=== PATIENT | female | born 1950 | race Caucasian/White ===

== ENCOUNTER 2016-11-04 08:59 | Day surgery (SDC) | payer MEDICARE, BC ==
[~2016-11-04 08:59] MED LIST: Dextrose 5%-Lactated Ringers 1,000 ML IV SCH
[2016-11-04] MEDS ORDERED: Dextrose 5%-Lactated Ringers 1,000 ML IV SCH (09:45)
[2016-11-04] MEDS ORDERED: fentaNYL 100 MCG/2 ML SDV ONE (11:15)
[2016-11-04] MEDS ORDERED: Midazolam 1 MG/ML 2 ML SDV ONE (11:15)
[2016-11-04] MEDS ORDERED: Propofol 200 MG/20 ML SDV ONE (11:15)
[2016-11-04 14:27] VITALS: BP 124/69
--- NOTE | 2016-11-08 12:45 | OR ---
DATE OF PROCEDURE: 11/04/2016 PREOPERATIVE DIAGNOSIS: History of colon polyps. POSTOPERATIVE DIAGNOSIS: Recurrent colon polyps x4. OPERATIVE PROCEDURE: Flexible colonoscopy with, 1. Polypectomy by snare technique x4. 2. Injection of an Precious ink submucosally at 40 cm from the dentate line. ANESTHESIA: IV sedation. INDICATION FOR PROCEDURE: The patient presents for a followup colonoscopy with biopsies and/or polypectomy as indicated. Potential risks of the procedure including bleeding and perforation were discussed, and the patient wishes to proceed. DETAILS OF PROCEDURE: The patient was taken to the operating room and placed in a left lateral decubitus position. IV sedation was administered, after which the initial digital rectal exam was performed and was unremarkable. Colonoscope was passed into the rectum with retroflexion revealing uncomplicated hemorrhoids. The scope was eventually passed to the level of cecum. The prep was quite good with there being only a small amount of liquid stool present. There were no diverticula. There were no areas of colitis and no obvious more advanced tumors, there were however 4 polyps ranging up to the size of around 4 mm. One of these was in the mid transverse colon and 3 were in the area of clustering of the polyps between 40 and 45 cm. In each case, these were encircled with a snare and excised and sent separately as specimens with a small amount of bleeding from one of the polypectomy sites that was gently cauterized to locate the area of the clustering of polyps at the 40 to 45 cm. A 5 mL of Precious ink was injected submucosally. At that point, no further problems noted and the scope was gradually withdrawn. The above findings reconfirmed, and the procedure concluded. The patient was taken to the recovery room in satisfactory condition. Plan will be to call the patient with regard to the biopsy findings and we will instruct her at that time with regard to appropriate timing of followup. Carlos Ruvalcaba MD /[id number]
== END 2016-11-04 14:35 | disposition home or self-care (01) ==
LOC: JP.SDS 08:59
PROVIDERS: ATTEND Surgery
DX: Z12.11 Encounter for screening for malignant neoplasm of colon (principal); Z86.010 Personal history of colon polyps; D12.3 Benign neoplasm of transverse colon; D12.6 Benign neoplasm of colon, unspecified; Z88.2 Allergy status to sulfonamides; Z88.1 Allergy status to other antibiotic agents; Z88.8 Allergy status to other drugs, medicaments and biological substances; Z91.018 Allergy to other foods; Z91.041 Radiographic dye allergy status; E78.5 Hyperlipidemia, unspecified; K21.9 Gastro-esophageal reflux disease without esophagitis; Z95.5 Presence of coronary angioplasty implant and graft; E11.22 Type 2 diabetes mellitus with diabetic chronic kidney disease; I12.9 Hypertensive chronic kidney disease with stage 1 through stage 4 chronic kidney disease, or unspecified chronic kidney disease; N18.3 Chronic kidney disease, stage 3 (moderate)
CPT/HCPCS: 45385; J2250; J2704; J3010; J7042; 88305

== ENCOUNTER 2016-11-07 14:15 | Inpatient (IN) | payer OTHER, MEDICARE, BC ==
--- NOTE | 2016-11-07 15:42 | EDM.PDOC ---
[id number]: PAIN IN LEFT SIDE HAD CHOLOSCOPY 11/04 Time Seen by Provider: 11/07/16 15:10 Source of Information: Reports: Patient History Limitations: Reports: No Limitations - History of Present Illness INITIAL COMMENTS - FREE TEXT/NARRATIVE: 66-year-old female who had a colonoscopy 3 days ago has developed left lower quadrant pain for the past 48 hours. It was painful enough that she had difficulty sleeping overnight. She is developing a small amount of rebound tenderness. No fevers or chills, no nausea or vomiting, no abdominal distention. Onset: Gradual (Over the past 24-48 hours) Location: Reports: Abdomen Severity: Mild Associated Symptoms: Denies: Fever/Chills, Nausea/Vomiting, Shortness of Breath left lower abdomen Pain Score (Numeric/FACES): 8 - Related Data Allergies Allergy/AdvReac Type Severity Reaction Status Date / Time atorvastatin [From Lipitor] Allergy Cannot Verified 11/07/16 14:47 Remember Cephalosporins Allergy Cannot Verified 11/07/16 14:47 Remember citric acid Allergy Cannot Verified 11/07/16 14:47 Remember cyclosporine Allergy Cannot Verified 11/07/16 14:47 Remember hydrochlorothiazide Allergy Cannot Verified 11/07/16 14:47 Remember Iodinated Contrast Media - Allergy Cannot Verified 11/07/16 14:47 Oral and Remember mold Allergy Cannot Verified 11/07/16 14:47 Remember nickel Allergy Cannot Verified 11/07/16 14:47 Remember orange Allergy Cannot Verified 11/07/16 14:47 Remember rosuvastatin [From Crestor] Allergy Cannot Verified 11/07/16 14:47 Remember Sulfa (Sulfonamide Allergy Cannot Verified 11/07/16 14:47 Antibiotics) Remember Tetanus Vaccines and Toxoid Allergy Cannot Verified 11/07/16 14:47 Remember trazodone Allergy Cannot Verified 11/07/16 14:47 Remember Home Meds: Home Meds Allopurinol [Zyloprim] 300 mg PO DAILY 10/24/16 [History] Aspirin 81 mg PO DAILY 10/24/16 [History] Cholecalciferol (Vitamin D3) [Vitamin D3] 400 units PO DAILY 10/24/16 [History] Citalopram [Citalopram HBr] 20 mg PO DAILY 10/24/16 [History] Clopidogrel [Plavix] 75 mg PO DAILY 10/24/16 [History] Ezetimibe [Zetia] 10 mg PO DAILY 10/24/16 [History] Formoterol/Mometasone [Dulera 100 MCG/5 MCG] 2 puff INH BID 10/24/16 [History] Isosorbide Mononitrate [Imdur] 30 mg PO DAILY 10/24/16 [History] Losartan Potassium [Cozaar] 50 mg PO DAILY 10/24/16 [History] Lovastatin [Mevacor] 80 mg PO DAILY 10/24/16 [History] Metoprolol Tartrate [Lopressor] 25 mg PO BID 10/24/16 [History] Multivitamin [Multiple Vitamins] 1 tab PO DAILY 10/24/16 [History] Omeprazole 40 mg PO BID 10/24/16 [History] Ranitidine [Zantac] 150 mg PO BID 10/24/16 [History] Ubidecarenone [Coenzyme Q10] 100 mg PO DAILY 10/24/16 [History] metFORMIN [Glucophage XR] 500 mg PO BEDTIME 10/24/16 [History] traMADol [Ultram] 25 mg PO DAILY PRN 10/24/16 [History] Past Medical History Cardiovascular History: Reports: Blood Clots/VTE/DVT, High Cholesterol, Hypertension, Stents Respiratory History: Reports: COPD Gastrointestinal History: Reports: GERD, Hemorrhoids, Hepatitis Genitourinary History: Reports: Chronic Renal Insuffiency 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: Musculoskeletal History: Reports: Gout Psychiatric History: Reports: Depression Endocrine/Metabolic History: Reports: Diabetes, Type II Hematologic History: Reports: Blood Transfusion(s) Oncologic (Cancer) History: Reports: Other (See Below) Other Oncologic History: multiple myeloma - Infectious Disease History Infectious Disease History: Reports: Hepatitis A, Hepatitis B - Past Surgical History HEENT Surgical History: Reports: Cataract Surgery Cardiovascular Surgical History: Reports: AAA repair, Coronary Artery Stent Respiratory Surgical History: Reports: None GI Surgical History: Reports: Appendectomy, Cholecystectomy, Colonoscopy Female Surgical History: Reports: Nephrectomy, Tubal Ligation Musculoskeletal Surgical History: Reports: None Social & Family History - Tobacco Use Smoking Status *Q: Never Smoker Second Hand Smoke Exposure: No - Recreational Drug Use Recreational Drug Use: No ED ROS GENERAL - Review of Systems Review Of Systems: See Below Constitutional: Reports: Malaise. Denies: Fever, Chills HEENT: Reports: No Symptoms Respiratory: Denies: Shortness of Breath Cardiovascular: Denies: Chest Pain GI/Abdominal: Reports: Abdominal Pain. Denies: Nausea Skin: Reports: No Symptoms Neurological: Denies: Headache ED EXAM, GI/ABD - Physical Exam Exam: See Below Exam Limited By: No Limitations General Appearance: Alert, No Apparent Distress Eyes: Bilateral: Normal Appearance (No jaundice) Throat/Mouth: Normal Inspection Respiratory/Chest: No Respiratory Distress, Lungs Clear Cardiovascular: Regular Rate, Rhythm GI/Abdominal: Normal Bowel Sounds, Tenderness (Patient has tenderness in the left lower quadrant with some mild guarding) Extremities: Normal Inspection Neurological: Alert, Oriented, No Motor/Sensory Deficits Psychiatric: Normal Affect, Normal Mood Skin Exam: Warm, Dry Course - Vital Signs Last Recorded V/S: Last Vital Signs Temp 97.2 F 11/08/16 03:00 Pulse 66 11/08/16 03:00 Resp 18 11/08/16 03:00 BP 110/63 11/08/16 03:00 Pulse Ox 93 L 11/08/16 03:00 - Orders/Labs/Meds Orders: Active Orders 24 hr Category Date Time Status Abdomen Pelvis wo Cont [CT] Stat Exams 11/07/16 16:39 Taken Medication Orders Hydromorphone HCl (Dilaudid Voucher Clerk 15 Mg In Ns 30 Ml) 0 mg IV ASDIRECTED PRN; Protocol PRN Reason: ACOUSTICAL LOGGING ENGINEER PAIN CONTROL Last Admin: 11/07/16 20:04 Dose: 15 mg Sodium Chloride (Normal Saline) 1,000 mls @ 150 mls/hr IV ASDIRECTED [facility] Last Admin: 11/08/16 02:49 Dose: 150 mls/hr Infusion: 11/08/16 02:45 Dose: 150 mls/hr Admin: 11/07/16 20:04 Dose: 150 mls/hr Meropenem 500 mg/ Sodium (Chloride) 50 mls @ 100 mls/hr IV Q6H [facility] Last Admin: 11/08/16 02:46 Dose: 100 mls/hr Admin: 11/07/16 20:24 Dose: 100 mls/hr Naloxone HCl (Narcan) 0.1 mg IV ASDIRECTED PRN PRN Reason: decreased respiratory rate Labs: Laboratory Tests 11/07/16 11/07/16 Range/Units 15:40 15:40 WBC 5.7 (4.5-11.0) K/uL RBC 3.89 (3.30-5.50) M/uL Hgb 12.2 (12.0-15.0) g/dL Hct 37.9 (36.0-48.0) % MCV 97 (80-98) fL MCH 31 (27-31) pg MCHC 32 (32-36) % Plt Count 154 (150-400) K/uL Neut % (Auto) 51 (36-66) % Lymph % (Auto) 36 (24-44) % [place] % (Auto) 11 H (2-6) % Eos % (Auto) 1 L (2-4) % Baso % (Auto) 0 (0-1) % Sodium 143 (140-148) mmol/L Potassium 4.3 (3.6-5.2) mmol/L Chloride 107 (100-108) mmol/L Carbon Dioxide 30 (21-32) mmol/L Anion Gap 5.9 (5.0-14.0) mmol/L BUN 16 (7-18) mg/dL Creatinine 1.1 H (0.6-1.0) mg/dL Est Cr Clr Drug Dosing 39.79 mL/min Estimated GFR (MDRD) 50 L (>60) Glucose 104 (74-106) mg/dL Calcium 9.3 (8.5-10.1) mg/dL Meds: Medications Generic Name Dose Route Start Last Admin Trade Name Freq PRN Reason Stop Dose Admin Hydromorphone HCl 0 mg 11/07/16 19:44 11/07/16 20:04 Dilaudid Voucher Clerk 15 Mg In Ns 30 Ml IV 15 mg ASDIRECTED PRN Administration ACOUSTICAL LOGGING ENGINEER PAIN CONTROL Protocol Sodium Chloride 1,000 mls @ 150 mls/hr 11/07/16 19:45 11/08/16 02:49 Normal Saline IV 150 mls/hr ASDIRECTED TORSTEN Administration Meropenem 500 mg/ Sodium 50 mls @ 100 mls/hr 11/07/16 20:00 11/08/16 02:46 Chloride IV 100 mls/hr Q6H TORSTEN Administration Naloxone HCl 0.1 mg 11/07/16 19:44 Narcan IV ASDIRECTED PRN decreased respiratory rate Discontinued Medications Generic Name Dose Route Start Last Admin Trade Name Freq PRN Reason Stop Dose Admin Lidocaine HCl Confirm 11/07/16 17:51 11/07/16 20:09 Xylocaine-Mpf 1% Administered 11/07/16 17:52 Not Given Dose 5 ml .ROUTE .STK-MED ONE - Re-Assessments/Exams Free Text/Narrative Re-Assessment/Exam: 11/07/16 17:11 CBC and BMP were obtained. 11/07/16 17:11 Creatinine was 1.1 and GFR was 50, otherwise CBC and BMP were entirely normal. She has an apparent past history of contrast dye reaction so a CT of the abdomen and pelvis was done without contrast. 11/08/16 07:01 CT showed evidence of a small perforation of the descending colon. This was discussed with Dr. Ruvalcaba, and the patient will be admitted for observation and expectant management without surgery. Departure - Departure Time of Disposition: 18:21 Disposition: Admitted As Inpatient 66 Condition: good Clinical Impression: Perforation of large intestine - Discharge Information - My Orders Last 24 Hours: My Active Orders 11/07/16 16:39 Abdomen Pelvis wo Cont [CT] Stat - Assessment/Plan Last 24 Hours: My Active Orders 11/07/16 16:39 Abdomen Pelvis wo Cont [CT] Stat
[2016-11-07] MEDS ORDERED: Naloxone 0.4 MG/ML SDV IV PRN (19:44)
[2016-11-07] MEDS ORDERED: HYDROmorphone/Normal Saline 15 MG/30 ML PCA IV PRN (19:44)
[2016-11-07] MEDS: Sodium Chloride 0.9% 1,000 ML IV SCH (20:04)
[2016-11-07] MEDS: Meropenem 500 MG in Sodium Chloride 0.9% 50 ML IV SCH (20:24)
[2016-11-08] MEDS: Meropenem 500 MG in Sodium Chloride 0.9% 50 ML IV SCH ×4 (02:46→20:12)
[2016-11-08] MEDS: Sodium Chloride 0.9% 1,000 ML IV SCH ×2 (02:49→18:35)
[2016-11-08] MEDS ORDERED: Citalopram 20 MG Tab PO SCH (09:00)
[2016-11-08] MEDS ORDERED: Clopidogrel 75 MG Tab PO SCH (09:00)
[2016-11-08] MEDS ORDERED: Ezetimibe 10 MG Tab PO SCH (09:00)
[2016-11-08] MEDS: Aspirin 81 MG Tab.Chew PO SCH (11:36)
[2016-11-08] MEDS: Aztreonam/Dextrose-Water 1 GM in Premix Bag 1 BAG IV SCH ×2 (11:36→17:25)
[2016-11-08] MEDS: Allopurinol 300 MG Tab PO SCH (11:37)
[2016-11-08] MEDS: Metoprolol Tartrate 25 MG Tab PO SCH ×2 (12:23→21:31)
[2016-11-08] MEDS: Losartan 50 MG Tab PO SCH (12:23)
[2016-11-08] MEDS: Formoterol/Mometasone 100-5 MCG 8.8 GM Inhaler IH SCH ×2 (12:23→22:43)
[2016-11-08] MEDS: Isosorbide Mononitrate 30 MG Tab.ER PO SCH (12:23)
[2016-11-08] MEDS: Pantoprazole 40 MG Tab.CR PO SCH ×3 (12:24→21:31)
[2016-11-08] MEDS: Cholecalciferol (Vitamin D3) 1,000 Unit Tab PO SCH (12:24)
[2016-11-08] MEDS: Multivitamins with Iron/Calcium/Folic Acid/Minerals Tab PO SCH (12:25)
--- NOTE | 2016-11-08 12:40 | PCM.HP ---
H&P History of Present Illness - General Source of Information: Patient History Limitations: Reports: No Limitations - History of Present Illness Initial Comments - Free Text/Narative: Mary Jane had a colonoscopy on Friday and she developed severe left mid and lateral abdominal pain. She went to the ER and was admitted for a micro perforation. Location: Reports: Abdomen Quality: Reports: Dull Severity: Mild Improves with: Reports: Medication Worsens with: Reports: None Associated Symptoms: Reports: No Other Symptoms left lower abdomen Pain Score (Numeric/FACES): 8 - Related Data Allergies/Adverse Reactions: Allergies Allergy/AdvReac Type Severity Reaction Status Date / Time atorvastatin [From Lipitor] Allergy Cannot Verified 11/07/16 14:47 Remember Cephalosporins Allergy Cannot Verified 11/07/16 14:47 Remember citric acid Allergy Cannot Verified 11/07/16 14:47 Remember cyclosporine Allergy Cannot Verified 11/07/16 14:47 Remember hydrochlorothiazide Allergy Cannot Verified 11/07/16 14:47 Remember Iodinated Contrast Media - Allergy Cannot Verified 11/07/16 14:47 Oral and Remember mold Allergy Cannot Verified 11/07/16 14:47 Remember nickel Allergy Cannot Verified 11/07/16 14:47 Remember orange Allergy Cannot Verified 11/07/16 14:47 Remember rosuvastatin [From Crestor] Allergy Cannot Verified 11/07/16 14:47 Remember Sulfa (Sulfonamide Allergy Cannot Verified 11/07/16 14:47 Antibiotics) Remember Tetanus Vaccines and Toxoid Allergy Cannot Verified 11/07/16 14:47 Remember trazodone Allergy Cannot Verified 11/07/16 14:47 Remember Home Medications: Home Meds Allopurinol [Zyloprim] 300 mg PO DAILY 10/24/16 [History] Aspirin 81 mg PO DAILY 10/24/16 [History] Cholecalciferol (Vitamin D3) [Vitamin D3] 400 units PO DAILY 10/24/16 [History] Citalopram [Citalopram HBr] 20 mg PO DAILY 10/24/16 [History] Clopidogrel [Plavix] 75 mg PO DAILY 10/24/16 [History] Ezetimibe [Zetia] 10 mg PO DAILY 10/24/16 [History] Isosorbide Mononitrate [Imdur] 30 mg PO DAILY 10/24/16 [History] Losartan Potassium [Cozaar] 50 mg PO DAILY 10/24/16 [History] Lovastatin [Mevacor] 80 mg PO DAILY 10/24/16 [History] Metoprolol Tartrate [Lopressor] 25 mg PO BID 10/24/16 [History] Multivitamin [Multiple Vitamins] 1 tab PO DAILY 10/24/16 [History] Omeprazole 40 mg PO BID 10/24/16 [History] Ranitidine [Zantac] 150 mg PO BID 10/24/16 [History] Ubidecarenone [Coenzyme Q10] 100 mg PO DAILY 10/24/16 [History] metFORMIN [Glucophage XR] 500 mg PO BEDTIME 10/24/16 [History] traMADol [Ultram] 25 mg PO DAILY PRN 10/24/16 [History] Past Medical History Cardiovascular History: Reports: Blood Clots/VTE/DVT, High Cholesterol, Hypertension, Stents Respiratory History: Reports: COPD Gastrointestinal History: Reports: GERD, Hemorrhoids, Hepatitis Genitourinary History: Reports: Chronic Renal Insuffiency 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: Musculoskeletal History: Reports: Gout Psychiatric History: Reports: Depression Endocrine/Metabolic History: Reports: Diabetes, Type II Hematologic History: Reports: Blood Transfusion(s) Oncologic (Cancer) History: Reports: Other (See Below) Other Oncologic History: multiple myeloma - Infectious Disease History Infectious Disease History: Reports: Hepatitis A, Hepatitis B - Past Surgical History HEENT Surgical History: Reports: Cataract Surgery Cardiovascular Surgical History: Reports: AAA repair, Coronary Artery Stent Respiratory Surgical History: Reports: None GI Surgical History: Reports: Appendectomy, Cholecystectomy, Colonoscopy Female Surgical History: Reports: Nephrectomy, Tubal Ligation Musculoskeletal Surgical History: Reports: None Social & Family History - Tobacco Use Smoking Status *Q: Never Smoker Second Hand Smoke Exposure: No - Caffeine Use Caffeine Use: Reports: None - Recreational Drug Use Recreational Drug Use: No H&P Review of Systems - Review of Systems: Review Of Systems: See Below General: Reports: No Symptoms HEENT: Reports: No Symptoms Pulmonary: Reports: No Symptoms Cardiovascular: Reports: No Symptoms Gastrointestinal: Reports: Abdominal Pain Genitourinary: Reports: No Symptoms Musculoskeletal: Reports: No Symptoms Skin: Reports: No Symptoms Psychiatric: Reports: No Symptoms Neurological: Reports: No Symptoms Hematologic/Lymphatic: Reports: No Symptoms Immunologic: Reports: No Symptoms Exam - Exam Exam: See Below - Vital Signs Vital Signs: Last Vital Signs Temp 97.5 F 06/09/17 11:44 Pulse 66 11/08/16 12:23 Resp 16 11/08/16 11:44 BP 118/70 11/08/16 12:23 Pulse Ox 91 L 11/08/16 11:44 Weight: 172 lb 2.896 oz - Exam General: Alert, Oriented, Cooperative HEENT: PERRLA Neck: Supple, Trachea Midline Lungs: Clear to Auscultation, Normal Respiratory Effort Cardiovascular: Regular Rate, Regular Rhythm Abdomen: Soft (Female) Exam: Deferred Rectal (Female) Exam: Deferred Back Exam: Normal Inspection, Full Range of Motion Extremities: Normal Inspection Skin: Warm, Dry Neurological: Cranial Nerves Intact, Reflexes Equal Bilateral Neuro Extensive - Mental Status: Alert, Oriented x3, Normal Mood/Affect Neuro Extensive - Motor, Sensory, Reflexes: CN II-XII Intact, Normal Gait Psychiatric: Alert, Normal Affect, Normal Mood - Patient Data Lab Results last 24 hrs: Laboratory Results - last 24 hr 11/08/16 11/08/16 Range/Units 04:20 04:20 WBC 5.5 (4.5-11.0) K/uL RBC 3.53 (3.30-5.50) M/uL Hgb 11.1 L (12.0-15.0) g/dL Hct 34.6 L (36.0-48.0) % MCV 98 (80-98) fL MCH 31 (27-31) pg MCHC 32 (32-36) % Plt Count 140 L (150-400) K/uL Neut % (Auto) 45 (36-66) % Lymph % (Auto) 41 (24-44) % [place] % (Auto) 11 H (2-6) % Eos % (Auto) 3 (2-4) % Baso % (Auto) 0 (0-1) % Sodium 142 (140-148) mmol/L Potassium 4.1 (3.6-5.2) mmol/L Chloride 109 H (100-108) mmol/L Carbon Dioxide 27 (21-32) mmol/L Anion Gap 10.1 (5.0-14.0) mmol/L BUN 17 (7-18) mg/dL Creatinine 1.1 H (0.6-1.0) mg/dL Est Cr Clr Drug Dosing 39.79 mL/min Estimated GFR (MDRD) 50 L (>60) Glucose 83 (74-106) mg/dL Calcium 8.5 (8.5-10.1) mg/dL Total Bilirubin 0.4 (0.2-1.0) mg/dL AST 19 (15-37) U/L ALT 22 (12-78) U/L Alkaline Phosphatase 51 (46-116) U/L Total Protein 6.2 L (6.4-8.2) g/dL Albumin 3.1 L (3.4-5.0) g/dL Globulin 3.1 (2.3-3.5) g/dL Albumin/Globulin Ratio 1.0 L (1.2-2.2) Result Diagrams: 11/08/16 04:20 11/08/16 04:20 *Q Meaningful Use (ADM) - VTE *Q VTE Criteria *Q: - Stroke *Q Stroke Criteria *Q: - AMI *Q AMI Criteria *Q: Problem List Initiated/Reviewed/Updated: Yes Orders Last 24hrs: Active Orders 24 hr Category Date Time Status Activity as Tolerated [RC] .Routine Care 11/07/16 19:30 Active Vital Signs [RC] Q4H Care 11/07/16 19:30 Active Allopurinol [Zyloprim] Med 11/08/16 09:00 Active 300 mg PO DAILY Aspirin Med 11/08/16 09:00 Active 81 mg PO DAILY Aztreonam/Dextrose-Water [Azactam in Dextrose,Iso- Med 11/08/16 10:00 Active Osmotic 1 GM/50 ML] 1 gm Premix Bag 1 bag IV Q8H Cholecalciferol (Vitamin D3) [Vitamin D3] Med 11/08/16 10:00 Active 500 units PO DAILY Citalopram [Celexa] Med 11/08/16 21:00 Active 20 mg PO BEDTIME Clopidogrel [Plavix] Med 11/08/16 21:00 Active 75 mg PO BEDTIME Ezetimibe [Zetia] Med 11/08/16 21:00 Active 10 mg PO BEDTIME HYDROmorphone/Normal Saline [Dilaudid EXCEL ANALYST 15 MG in NS Med 11/07/16 19:44 Active 30 ML] 0 mg IV ASDIRECTED PRN Isosorbide Mononitrate [Imdur] Med 11/08/16 10:00 Active 30 mg PO DAILY@0730 Losartan [Cozaar] Med 11/08/16 10:00 Active 50 mg PO DAILY Lovastatin [Mevacor] Med 11/09/16 17:00 Active 80 mg PO QPM Meropenem [Merrem] 500 mg Med 11/07/16 20:00 Active Sodium Chloride 0.9% [Normal Saline] 50 ml IV Q6H Metoprolol Tartrate [Lopressor] Med 11/08/16 10:00 Active 25 mg PO BID Mometasone/Formoterol [Dulera 100-5 MCG] Med 11/08/16 10:00 Active 0 puff IH BIDRT Multivitamins w-Iron/Ca/FA/Min [Thera M Plus] Med 11/08/16 10:00 Active 1 tab PO DAILY Naloxone [Narcan] Med 11/07/16 19:44 Active 0.1 mg IV ASDIRECTED PRN Pantoprazole [ProTONIX] Med 11/08/16 10:00 Active 40 mg PO BIDAC Ranitidine [Zantac] Med 11/08/16 10:00 Active 150 mg PO BID Sodium Chloride 0.9% [Normal Saline] 1,000 ml Med 11/07/16 19:45 Active IV ASDIRECTED Ubidecarenone [Coenzyme Q10] Med 11/09/16 09:00 Active 100 mg PO DAILY metFORMIN [Glucophage XR] Med 11/08/16 17:00 Active 500 mg PO QPM Medication Orders Allopurinol (Zyloprim) 300 mg PO DAILY [facility] Last Admin: 11/08/16 11:37 Dose: 300 mg Aspirin (Aspirin) 81 mg PO DAILY [facility] Last Admin: 11/08/16 11:36 Dose: 81 mg Cholecalciferol (Vitamin D3) 500 units PO DAILY [facility] Last Admin: 11/08/16 12:24 Dose: 500 units Citalopram Hydrobromide (Celexa) 20 mg PO BEDTIME [facility] Clopidogrel Bisulfate (Plavix) 75 mg PO BEDTIME TORSTEN Ezetimibe (Zetia) 10 mg PO BEDTIME [facility] Hydromorphone HCl (Dilaudid Melter Supervisor 15 Mg In Ns 30 Ml) 0 mg IV ASDIRECTED PRN; Protocol PRN Reason: EXCEL ANALYST PAIN CONTROL Last Admin: 11/07/16 20:04 Dose: 15 mg Sodium Chloride (Normal Saline) 1,000 mls @ 150 mls/hr IV ASDIRECTED [facility] Last Admin: 11/08/16 02:49 Dose: 150 mls/hr Infusion: 11/08/16 02:45 Dose: 150 mls/hr Admin: 11/07/16 20:04 Dose: 150 mls/hr Meropenem 500 mg/ Sodium (Chloride) 50 mls @ 100 mls/hr IV Q6H [facility] Last Admin: 11/08/16 09:00 Dose: 100 mls/hr Admin: 11/08/16 02:46 Dose: 100 mls/hr Admin: 11/07/16 20:24 Dose: 100 mls/hr Aztreonam/Dextrose 1 gm/ (Premix) 50 mls @ 100 mls/hr IV Q8H [facility] Last Admin: 11/08/16 11:36 Dose: 100 mls/hr Isosorbide Mononitrate (Imdur) 30 mg PO DAILY@0730 [facility] Last Admin: 11/08/16 12:23 Dose: 30 mg Losartan Potassium (Cozaar) 50 mg PO DAILY [facility] Last Admin: 11/08/16 12:23 Dose: 50 mg Lovastatin (Mevacor) 80 mg PO QPM [facility] Metformin HCl (Glucophage Xr) 500 mg PO QPM [facility] Metoprolol Tartrate (Lopressor) 25 mg PO BID [facility] Last Admin: 11/08/16 12:23 Dose: 25 mg Mometasone Furoate/Formoterol Fumar (Dulera 100-5 Mcg) 0 puff IH BIDRT [facility] Last Admin: 11/08/16 12:23 Dose: Multivitamins/Minerals (Thera M Plus) 1 tab PO DAILY [facility] Last Admin: 11/08/16 12:25 Dose: Not Given Naloxone HCl (Narcan) 0.1 mg IV ASDIRECTED PRN PRN Reason: decreased respiratory rate (Ubidecarenone [ Coenzyme Q10] 100 Mg )*Pom* 100 mg PO DAILY [facility] Pantoprazole Sodium (Protonix) 40 mg PO BIDAC [facility] Last Admin: 11/08/16 12:24 Dose: 40 mg Ranitidine HCl (Zantac) 150 mg PO BID [facility] Last Admin: 11/08/16 11:39 Dose: 150 mg
[2016-11-08] MEDS: metFORMIN 500 MG Tab.ER PO SCH (17:25)
[2016-11-08] MEDS: Ezetimibe 10 MG Tab PO SCH (21:30)
[2016-11-08] MEDS: Citalopram 20 MG Tab PO SCH (21:30)
[2016-11-08] MEDS: Clopidogrel 75 MG Tab PO SCH (21:30)
[2016-11-09] MEDS: Meropenem 500 MG in Sodium Chloride 0.9% 50 ML IV SCH ×3 (01:22→14:36)
[2016-11-09] MEDS: Sodium Chloride 0.9% 1,000 ML IV SCH ×2 (01:23→09:30)
[2016-11-09] MEDS: Aztreonam/Dextrose-Water 1 GM in Premix Bag 1 BAG IV SCH ×2 (02:17→09:30)
[2016-11-09] MEDS: Pantoprazole 40 MG Tab.CR PO SCH ×2 (08:13→16:34)
[2016-11-09] MEDS: Aspirin 81 MG Tab.Chew PO SCH (08:14)
[2016-11-09] MEDS: Isosorbide Mononitrate 30 MG Tab.ER PO SCH (08:14)
[2016-11-09] MEDS: Losartan 50 MG Tab PO SCH (08:15)
[2016-11-09] MEDS: Metoprolol Tartrate 25 MG Tab PO SCH ×2 (08:15→21:17)
[2016-11-09] MEDS: Multivitamins with Iron/Calcium/Folic Acid/Minerals Tab PO SCH (08:15)
[2016-11-09] MEDS: Cholecalciferol (Vitamin D3) 1,000 Unit Tab PO SCH (08:16)
[2016-11-09] MEDS: Allopurinol 300 MG Tab PO SCH (08:17)
[2016-11-09] MEDS: Formoterol/Mometasone 100-5 MCG 8.8 GM Inhaler IH SCH ×2 (08:22→21:08)
[2016-11-09] MEDS: Amoxicillin/Clavulanate K 875-125 MG Tab PO SCH ×2 (10:57→21:16)
[2016-11-09] MEDS: HYDROmorphone 2 MG Tab PO PRN ×2 (11:00→21:14)
[2016-11-09] MEDS: metFORMIN 500 MG Tab.ER PO SCH (16:34)
[2016-11-09] MEDS: Doxycycline 100 MG Cap PO SCH ×2 (16:35→17:12)
[2016-11-09] MEDS: Ezetimibe 10 MG Tab PO SCH (21:15)
[2016-11-09] MEDS: Clopidogrel 75 MG Tab PO SCH (21:16)
[2016-11-09] MEDS: Citalopram 20 MG Tab PO SCH (21:16)
[2016-11-09] MEDS ORDERED: Furosemide 20 MG Tab PO ONE (22:35)
[2016-11-09] MEDS ORDERED: Albuterol/Ipratropium 3.0-0.5 MG/3 ML Neb Soln ONE (22:36)
[2016-11-09] MEDS: Albuterol/Ipratropium 3.0-0.5 MG/3 ML Neb Soln NEB PRN (22:43)
[2016-11-10] MEDS: HYDROmorphone 2 MG Tab PO PRN (03:16)
[2016-11-10] MEDS: Albuterol/Ipratropium 3.0-0.5 MG/3 ML Neb Soln NEB PRN (03:16)
[2016-11-10] MEDS: Doxycycline 100 MG Cap PO SCH (05:40)
[2016-11-10 06:58] VITALS: BP 140/84
[2016-11-10] MEDS: Albuterol/Ipratropium 3.0-0.5 MG/3 ML Neb Soln NEB SCH ×2 (07:16→10:44)
[2016-11-10] MEDS ORDERED: ATROVENT INH SCH (09:00)
[2016-11-10] MEDS: Pantoprazole 40 MG Tab.CR PO SCH (10:10)
[2016-11-10] MEDS: Isosorbide Mononitrate 30 MG Tab.ER PO SCH (10:11)
[2016-11-10] MEDS: Aspirin 81 MG Tab.Chew PO SCH (10:12)
[2016-11-10] MEDS: Amoxicillin/Clavulanate K 875-125 MG Tab PO SCH (10:12)
[2016-11-10] MEDS: Losartan 50 MG Tab PO SCH (10:12)
[2016-11-10] MEDS: Metoprolol Tartrate 25 MG Tab PO SCH (10:12)
[2016-11-10] MEDS: Multivitamins with Iron/Calcium/Folic Acid/Minerals Tab PO SCH (10:13)
[2016-11-10] MEDS: Cholecalciferol (Vitamin D3) 1,000 Unit Tab PO SCH (10:13)
[2016-11-10] MEDS: Allopurinol 300 MG Tab PO SCH (10:14)
--- NOTE | 2016-11-10 10:27 | PN ---
DATE OF SERVICE: 11/10/2016 SUBJECTIVE: Mary Jane's hemoglobin went from 12 to 10.8. She did have Lasix 10 mg yesterday for shortness of breath and generalized retention of fluid. Her output was 5100. Nebulizers were ordered last evening and she has had two of those and it did help with her breathing. She states that she is having pain in her left mid quadrant and she states it is worse today than it was yesterday, feels deeper. She feels more bloated in her abdomen area. Remains to be afebrile. REVIEW OF SYSTEMS: Remainder of review of systems negative for any pertinent positives and negatives. OBJECTIVE: GENERAL: Mary Jane is a 66-year-old female. VITAL SIGNS: TPR is 98.3, 83, 16, blood pressure 140/84. HEENT: Negative. NECK: Supple. HEART: Regular rate and rhythm. LUNGS: Clear. ABDOMEN: Reveals an increased amount of tenderness in the left mid lateral quadrant. Slight distention noted. EXTREMITIES: Without peripheral edema. ASSESSMENT: Perforation of the large intestine. SP full colonoscopy with biopsies. PLAN: CT of abdomen and pelvis without contrast. Check CMP. Lasix 20 mg to be given one time today orally after CT scan. Call with results of the CT scan, Acapella and to check CBC, CMP, and Mag phos in a.m. Delores Laguna PA-C /[id number]
[2016-11-10] MEDS ORDERED: Furosemide 20 MG Tab PO ONE (10:30)
--- NOTE | 2016-11-11 11:43 | PN ---
DATE OF SERVICE: 11/09/2016 The patient has been afebrile with stable vital signs. She is complaining of much less in the way of abdominal pain, and is tolerating the antibiotics presently. We will go up to a full-liquid diet today. She is mildly tender, but this looks much better than yesterday. She will probably be able to be discharged home tomorrow on oral antibiotics. Today, we will start Augmentin 875 mg p.o. b.i.d. and doxycycline 100 mg b.i.d. These would be the antibiotics she would go home with. We will test these today to make sure that she tolerates this. She will be following up with Dr. Ruvalcaba this coming Friday, assuming she is discharged home tomorrow. We will check a CBC in the morning as well. We will switch over to oral pain medication going to oral Dilaudid. Carlos Ruvalcaba MD /[id number]
--- NOTE | 2016-11-14 02:55 | DISCH ---
ADMISSION DIAGNOSES: 1. Left mid and lateral abdominal pain. 2. Vitamin D deficiency. 3. History of deep venous thrombosis. 4. Hypercholesterolemia. 5. Hypertension. 6. Chronic obstructive pulmonary disease. 7. Gastroesophageal reflux disease. 8. Hemorrhoids. 9. Hepatitis. 10.Chronic renal failure. 11.Depression. 12.Gout. 13.Diabetes type 2. 14.Multiple myeloma. DISCHARGE DIAGNOSIS: Perforation of the large intestine, status post colonoscopy with biopsies. HISTORY: Mary Jane Olivares is a 66-year-old female, who had a colonoscopy with biopsies on 11/04/2016. She developed increasing abdominal pain and was seen in the ER and after evaluation, was admitted with a microperforation of the large intestine at the site of the biopsies. She was admitted on 11/07/2016. 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 She remained n.p.o., clear liquid diet until 11/09/2016 and was started on a full liquid diet. She had abdominal and pelvis CT on 11/07/2016 and repeated on 11/10/2016. Her hospital course otherwise remained unremarkable. She was started on DuoNeb for some upper respiratory coughing. Blood sugars remained stable and she remained afebrile. She was able then to be discharged on 11/10/2016. REVIEW OF SYSTEMS: HEENT: Negative. NECK: Negative. HEART: No chest pain, shortness of breath, fast or irregular heart beat. LUNGS: Occasional cough. Nebulizers do help. She does have COPD and also started taking her p.r.n. inhalers. ABDOMEN: Less tenderness in that left mid and upper quadrant. Oral intake was at 2595. On day of discharge, for breakfast, lunch, and dinner, she consumed 75, 100, and 100 and last bowel movement was on 11/10/2016 before discharge. Pain on a pain scale of 1 to 10 of abdomen, she states was a 1 to 3/10. : Negative. EXTREMITIES: No joint pain or swelling. NEUROLOGIC: No headaches, dizziness, or loss of coordination. PSYCHIATRIC: Negative for depression, anxiety, or insomnia. Remainder of review of systems negative for any pertinent positives and negatives. OBJECTIVE: GENERAL: Mary Jane Carreno is a 66-year-old female. She is alert and orientated. Color pale. VITAL SIGNS: Height is 5 feet 1.8 inches and weight is 172 pounds. TPR 98.3, 83, 16, blood pressure 140/84, and O2 by pulse oximetry is 92%. HEENT: Negative. NECK: Supple. HEART: Regular rate and rhythm. LUNGS: Clear. ABDOMEN: Minimal tenderness is noted in the left mid and left upper abdominal quadrants, otherwise negative. EXTREMITIES: Without peripheral edema. NEUROLOGIC: Cranial nerves 2 through 12 intact. MUSCULOSKELETAL: Deep tendon reflexes are 2+ and equal bilaterally. SKIN: Without rash. PSYCHIATRIC: Mood and affect appropriate. DISPOSITION: Discharged to home. CONDITION: Stable and improving. FOLLOWUP APPOINTMENT: With Carlos Ruvalcaba MD, on 11/13/2016 at 9:00 a.m. DISCHARGE MEDICATIONS: Home medications: 1. Augmentin 875 mg 1 tablet b.i.d. for 14 days. 2. Doxycycline 100 mg p.o. q.12 hours, #14. 3. Dilaudid 2 mg 1 to 2 every 4 hours p.r.n. pain, #30. She is to resume her home medication of Imdur (isosorbide mononitrate) 30 mg daily, Zetia 10 mg daily, Plavix 75 mg daily, citalopram 20 mg daily, vitamin D3 at 400 units daily, aspirin 81 mg daily, Zyloprim 300 mg p.o. daily, Glucophage XR 500 mg at bedtime, Coenzyme Q10 100 mg p.o. daily, Zantac 150 mg p.o. b.i.d., omeprazole 40 mg b.i.d., multivitamin 1 tab p.o. daily, metoprolol tartrate (Lopressor) 25 mg p.o. b.i.d., Mevacor 80 mg p.o. daily, and losartan potassium (Cozaar) 50 mg p.o. daily. DIET: Regular diet. ACTIVITY: As tolerated. Notify provider if any nausea, vomiting, or increased pain.
== END 2016-11-10 13:30 | disposition home or self-care (01) | DRG 395 ==
LOC: JP.ED 14:15 → JP.MS 18:10
PROVIDERS: ADMIT Surgery; ATTEND Surgery
DX: K63.1 Perforation of intestine (nontraumatic) (principal); Y84.8 Other medical procedures as the cause of abnormal reaction of the patient, or of later complication, without mention of misadventure at the time of the procedure; I10 Essential (primary) hypertension; I12.9 Hypertensive chronic kidney disease with stage 1 through stage 4 chronic kidney disease, or unspecified chronic kidney disease; N18.9 Chronic kidney disease, unspecified; E11.22 Type 2 diabetes mellitus with diabetic chronic kidney disease; Z79.84 Long term (current) use of oral hypoglycemic drugs; R10.32 Left lower quadrant pain; E78.00 Pure hypercholesterolemia, unspecified; Z86.718 Personal history of other venous thrombosis and embolism; K21.9 Gastro-esophageal reflux disease without esophagitis; F32.9 Major depressive disorder, single episode, unspecified; M10.9 Gout, unspecified; Z95.5 Presence of coronary angioplasty implant and graft; Z86.19 Personal history of other infectious and parasitic diseases; Z85.89 Personal history of malignant neoplasm of other organs and systems; Z91.018 Allergy to other foods; Z91.048 Other nonmedicinal substance allergy status; Z79.82 Long term (current) use of aspirin
CPT/HCPCS: 36415; 74176; 80048; 80053; 85025; 85027; 94640-76; 94667; 96365; 99284; 99285-25; A9270-GY; J1170; J2185; J3490; J7040; J7050; J7620

== ENCOUNTER 2017-04-28 10:30 | Emergency (ER) | payer MEDICARE, BC ==
[2017-04-28 10:47] VITALS: BP 149/93
--- NOTE | 2017-04-28 11:13 | EDM.PDOC ---
ED HPI GENERAL MEDICAL PROBLEM - General Chief Complaint: ENT Problem Stated Complaint: cold Time Seen by Provider: 04/28/17 11:00 Source of Information: Reports: Patient, Old Records History Limitations: Reports: No Limitations - History of Present Illness INITIAL COMMENTS - FREE TEXT/NARRATIVE: 67 yo female here with congestion, nasal discharge, and post-nasal drip. Some coughing. ? low grade fevers at night. Called the clinic and was referred to the ER. Onset: Gradual Onset Date: 04/26/17 Duration: Day(s): Location: Reports: Face (sinuses), Chest Quality: Reports: Dull Severity: Mild Improves with: Reports: None Worsens with: Reports: Other (? 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) - Related Data Allergies Allergy/AdvReac Type Severity Reaction Status Date / Time atorvastatin [From Lipitor] Allergy Cannot Verified 04/28/17 10:46 Remember Cephalosporins Allergy Cannot Verified 04/28/17 10:46 Remember citric acid Allergy Cannot Verified 04/28/17 10:46 Remember cyclosporine Allergy Cannot Verified 04/28/17 10:46 Remember hydrochlorothiazide Allergy Cannot Verified 04/28/17 10:46 Remember Iodinated Contrast- Oral and Allergy Cannot Verified 04/28/17 10:46 IV Dye Remember [Iodinated Contrast Media - Oral and] mold Allergy Cannot Verified 04/28/17 10:46 Remember nickel Allergy Cannot Verified 04/28/17 10:46 Remember orange Allergy Cannot Verified 04/28/17 10:46 Remember rosuvastatin [From Crestor] Allergy Cannot Verified 04/28/17 10:46 Remember Sulfa (Sulfonamide Allergy Cannot Verified 04/28/17 10:46 Antibiotics) Remember Tetanus Vaccines and Toxoid Allergy Cannot Verified 04/28/17 10:46 Remember trazodone Allergy Cannot Verified 04/28/17 10:46 Remember Home Meds: Home Meds Allopurinol [Zyloprim] 300 mg PO DAILY 10/24/16 [History] Aspirin 81 mg PO DAILY 10/24/16 [History] Cholecalciferol (Vitamin D3) [Vitamin D3] 400 units PO DAILY 10/24/16 [History] Citalopram [Citalopram HBr] 20 mg PO DAILY 10/24/16 [History] Clopidogrel [Plavix] 75 mg PO DAILY 10/24/16 [History] Ezetimibe [Zetia] 10 mg PO DAILY 10/24/16 [History] Isosorbide Mononitrate [Imdur] 30 mg PO DAILY 10/24/16 [History] Losartan Potassium [Cozaar] 50 mg PO DAILY 10/24/16 [History] Lovastatin [Mevacor] 80 mg PO DAILY 10/24/16 [History] Metoprolol Tartrate [Lopressor] 25 mg PO BID 10/24/16 [History] Multivitamin [Multiple Vitamins] 1 tab PO DAILY 10/24/16 [History] Omeprazole 40 mg PO BID 10/24/16 [History] Ranitidine [Zantac] 150 mg PO BID 10/24/16 [History] Ubidecarenone [Coenzyme Q10] 100 mg PO DAILY 10/24/16 [History] metFORMIN [Glucophage XR] 500 mg PO BEDTIME 10/24/16 [History] traMADol [Ultram] 25 mg PO DAILY PRN 10/24/16 [History] Non-Formulary Medication [NF Drug] 17 mcg INH BID 11/10/16 [History] Azithromycin [IJD: Azithromycin] 250 mg PO ASDIRECTED #6 tab 04/28/17 [Rx] Past Medical History Cardiovascular History: Reports: Blood Clots/VTE/DVT, High Cholesterol, Hypertension, Stents Respiratory History: Reports: COPD Gastrointestinal History: Reports: GERD, Hemorrhoids, Hepatitis Genitourinary History: Reports: Chronic Renal Insuffiency 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: Musculoskeletal History: Reports: Gout Psychiatric History: Reports: Depression Endocrine/Metabolic History: Reports: Diabetes, Type II Hematologic History: Reports: Blood Transfusion(s) Oncologic (Cancer) History: Reports: Other (See Below) Other Oncologic History: multiple myeloma - Infectious Disease History Infectious Disease History: Reports: Hepatitis A, Hepatitis B - Past Surgical History HEENT Surgical History: Reports: Cataract Surgery Cardiovascular Surgical History: Reports: AAA Repair, Coronary Artery Stent Respiratory Surgical History: Reports: None GI Surgical History: Reports: Appendectomy, Cholecystectomy, Colonoscopy Female Surgical History: Reports: Nephrectomy, Tubal Ligation Musculoskeletal Surgical History: Reports: None Social & Family History - Tobacco Use Smoking Status *Q: Never Smoker Second Hand Smoke Exposure: No - Caffeine Use Caffeine Use: Reports: None - Recreational Drug Use Recreational Drug Use: No ED ROS ENT - Review of Systems Review Of Systems: See Below Constitutional: Reports: Fever HEENT: Reports: Rhinitis, Sinus Problem. Denies: Ear Discharge, Ear Pain, Eye Discharge Respiratory: Reports: Shortness of Breath (possibly mild SOB), Cough, Sputum. Denies: Hemoptysis Cardiovascular: Reports: No Symptoms GI/Abdominal: Reports: No Symptoms : Reports: No Symptoms Musculoskeletal: Reports: No Symptoms Skin: Reports: No Symptoms Neurological: Reports: No Symptoms ED EXAM, ENT - Physical Exam Exam: See Below Exam Limited By: No Limitations General Appearance: Alert, WD/WN, No Apparent Distress Eye Exam: Bilateral Eye: Normal Inspection Ears: Normal External Exam, Normal Canal, Hearing Grossly Normal, Normal TMs Nose: Other (mixed light yellow thick nasal discharge with slight amt of blood present.) Mouth/Throat: Normal Inspection, Normal Gums, Normal Lips, Normal Oropharynx Head: Atraumatic, Normocephalic Neck: Normal Inspection, Supple, Non-Tender Respiratory/Chest: No Respiratory Distress, Lungs Clear, Normal Breath Sounds, No Accessory Muscle Use Cardiovascular: Regular Rate, Rhythm, No Edema GI/Abdominal: Normal Bowel Sounds, Soft, Non-Tender Back: Normal Inspection. No: CVA Tenderness (R), CVA Tenderness (L) Extremities: Normal Inspection, Normal Range of Motion, Non-Tender, No Pedal Edema Neurological: Alert, Oriented, CN II-XII Intact, Normal Cognition, No Motor/ Sensory Deficits Psychiatric: Normal Affect, Normal Mood Skin: Warm, Dry, Intact, Normal Color, No Rash Lymphatic: No Adenopathy Course - Vital Signs Last Recorded V/S: Last Vital Signs Temp 36.6 C 04/28/17 10:53 Pulse 81 04/28/17 10:53 Resp 16 04/28/17 10:53 BP 149/93 H 04/28/17 10:53 Pulse Ox 93 L 04/28/17 10:53 Departure - Departure Time of Disposition: 11:12 Disposition: Home, Self-Care 01 Condition: Good Clinical Impression: Sinusitis Qualifiers: Sinusitis location: maxillary Chronicity: acute Recurrence: non-recurrent Qualified Code(s): J01.00 - Acute maxillary sinusitis, unspecified - Discharge Information Prescriptions: Azithromycin [IJD: Azithromycin] 250 mg PO ASDIRECTED #6 tab Referrals: Nikhil Stark MD [Primary Care Provider] - Forms: ED Department Discharge Additional Instructions: Take azithromycin 500 mg today, then 250 mg every 24 hrs until gone. Recheck in the clinic or urgent care as needed.
== END 2017-04-28 11:37 | disposition home or self-care (01) ==
LOC: JP.ED 10:30
DX: J01.00 Acute maxillary sinusitis, unspecified (principal); E78.00 Pure hypercholesterolemia, unspecified; I12.9 Hypertensive chronic kidney disease with stage 1 through stage 4 chronic kidney disease, or unspecified chronic kidney disease; E11.22 Type 2 diabetes mellitus with diabetic chronic kidney disease; N18.9 Chronic kidney disease, unspecified; F32.9 Major depressive disorder, single episode, unspecified; Z79.84 Long term (current) use of oral hypoglycemic drugs; Z79.82 Long term (current) use of aspirin; Z79.02 Long term (current) use of antithrombotics/antiplatelets; Z79.899 Other long term (current) drug therapy; Z88.7 Allergy status to serum and vaccine; Z88.2 Allergy status to sulfonamides; Z88.8 Allergy status to other drugs, medicaments and biological substances; Z91.041 Radiographic dye allergy status; Z91.018 Allergy to other foods; Z88.1 Allergy status to other antibiotic agents
CPT/HCPCS: 99283

== ENCOUNTER 2017-11-18 20:27 | Emergency (ER) | payer MEDICARE, BC ==
[2017-11-18 20:54] VITALS: BP 171/74
[2017-11-18] MEDS ORDERED: HYDROmorphone 1 MG/ML Syringe IM ONE (21:29)
--- NOTE | 2017-11-18 21:32 | EDM.PDOC ---
ED HPI GENERAL MEDICAL PROBLEM - General Chief Complaint: Upper Extremity Injury/Pain Stated Complaint: POSSIBLE BROKEN RT WRIST Time Seen by Provider: 11/18/17 21:20 Source of Information: Reports: Patient History Limitations: Reports: No Limitations - History of Present Illness INITIAL COMMENTS - FREE TEXT/NARRATIVE: 67 yo female fell getting out of her boat today and injured her R wrist. Here with her for eval. 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 Pain Score (Numeric/FACES): 7 - Related Data Allergies Allergy/AdvReac Type Severity Reaction Status Date / Time atorvastatin [From Lipitor] Allergy Cannot Verified 11/18/17 21:00 Remember Cephalosporins Allergy Cannot Verified 11/18/17 21:00 Remember citric acid Allergy Cannot Verified 11/18/17 21:00 Remember cyclosporine Allergy Cannot Verified 11/18/17 21:00 Remember hydrochlorothiazide Allergy Cannot Verified 11/18/17 21:00 Remember Iodinated Contrast- Oral and Allergy Cannot Verified 11/18/17 21:00 IV Dye Remember [Iodinated Contrast Media - Oral and] mold Allergy Cannot Verified 11/18/17 21:00 Remember nickel Allergy Cannot Verified 11/18/17 21:00 Remember orange Allergy Cannot Verified 11/18/17 21:00 Remember rosuvastatin [From Crestor] Allergy Cannot Verified 11/18/17 21:00 Remember Sulfa (Sulfonamide Allergy Cannot Verified 11/18/17 21:00 Antibiotics) Remember Tetanus Vaccines and Toxoid Allergy Cannot Verified 11/18/17 21:00 Remember trazodone Allergy Cannot Verified 11/18/17 21:00 Remember Home Meds: Home Meds Allopurinol [Zyloprim] 300 mg PO DAILY 10/24/16 [History] Aspirin 81 mg PO DAILY 10/24/16 [History] Cholecalciferol (Vitamin D3) [Vitamin D3] 400 units PO DAILY 10/24/16 [History] Citalopram [Citalopram HBr] 20 mg PO DAILY 10/24/16 [History] Clopidogrel [Plavix] 75 mg PO DAILY 10/24/16 [History] Ezetimibe [Zetia] 10 mg PO DAILY 10/24/16 [History] Isosorbide Mononitrate [Imdur] 30 mg PO DAILY 10/24/16 [History] Losartan Potassium [Cozaar] 25 mg PO DAILY 10/24/16 [History] Lovastatin [Mevacor] 80 mg PO DAILY 10/24/16 [History] Metoprolol Tartrate [Lopressor] 25 mg PO BID 10/24/16 [History] Ranitidine [Zantac] 150 mg PO BID 10/24/16 [History] Ubidecarenone [Coenzyme Q10] 100 mg PO BEDTIME 10/24/16 [History] traMADol [Ultram] 25 mg PO DAILY PRN 10/24/16 [History] Non-Formulary Medication [NF Drug] 17 mcg INH BID 11/10/16 [History] Past Medical History Cardiovascular History: Reports: Blood Clots/VTE/DVT, High Cholesterol, Hypertension, Stents Respiratory History: Reports: COPD Gastrointestinal History: Reports: GERD, Hemorrhoids, Hepatitis Genitourinary History: Reports: Chronic Renal Insuffiency Other Genitourinary History: stage 3 kidney disease 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: Musculoskeletal History: Reports: Gout Psychiatric History: Reports: Depression Endocrine/Metabolic History: Reports: Diabetes, Type II Hematologic History: Reports: Blood Transfusion(s) Oncologic (Cancer) History: Reports: Other (See Below) Other Oncologic History: multiple myeloma - Infectious Disease History Infectious Disease History: Reports: Chicken Pox, Hepatitis A, Hepatitis B, Measles - Past Surgical History HEENT Surgical History: Reports: Cataract Surgery Cardiovascular Surgical History: Reports: AAA Repair, Coronary Artery Stent Respiratory Surgical History: Reports: None GI Surgical History: Reports: Appendectomy, Cholecystectomy, Colonoscopy Female Surgical History: Reports: Nephrectomy, Tubal Ligation Musculoskeletal Surgical History: Reports: None Social & Family History - Tobacco Use Smoking Status *Q: Former Smoker Used Tobacco, but Quit: No - Caffeine Use Caffeine Use: Reports: Tea - Recreational Drug Use Recreational Drug Use: No Review of Systems - Review of Systems Review Of Systems: See Below Constitutional: Reports: No Symptoms Musculoskeletal: Reports: Joint Pain (R wrist) Skin: Reports: No Symptoms Neurological: Reports: No Symptoms ED EXAM, GENERAL - Physical Exam Exam: See Below Exam Limited By: No Limitations General Appearance: Alert, WD/WN, No Apparent Distress Extremities: Normal Inspection, No Pedal Edema, Limited Range of Motion. No: Normal Range of Motion, Non-Tender, Joint Swelling, Increased Warmth, Redness Neurological: Alert, Oriented, CN II-XII Intact, Normal Cognition, No Motor/ Sensory Deficits Psychiatric: Normal Affect, Normal Mood Skin Exam: Warm, Dry, Intact, Normal Color, No Rash Course - Vital Signs Text/Narrative:: Sugar Tong splint applied Last Recorded V/S: Last Vital Signs Temp 37.1 C 11/18/17 20:58 Pulse 72 11/18/17 20:58 Resp 16 11/18/17 20:58 BP 171/74 H 11/18/17 20:58 Pulse Ox 97 11/18/17 20:58 - Orders/Labs/Meds Orders: Active Orders 24 hr Category Date Time Status Wrist Comp Min 3V Rt [CR] Stat Exams 11/18/17 21:27 Taken Meds: Medications Discontinued Medications Generic Name Dose Route Start Last Admin Trade Name Leighann PRN Reason Stop Dose Admin Hydromorphone HCl 1 mg 11/18/17 21:29 11/18/17 21:33 Dilaudid IM 11/18/17 21:30 1 mg ONETIME ONE Administration - Radiology Interpretation Free Text/Narrative:: R wrist X-ray-? subtle distal radius/ulna fx's Departure - Departure Time of Disposition: 22:10 Disposition: Home, Self-Care 01 Condition: Fair Clinical Impression: Distal radius fracture, right Qualifiers: Encounter type: initial encounter Fracture type: closed Fracture morphology: unspecified fracture morphology Qualified Code(s): S52.501A - Unspecified fracture of the lower end of right radius, initial encounter for closed fracture - Discharge Information Referrals: Nikhil Stark MD [Primary Care Provider] - Forms: ED Department Discharge - My Orders Last 24 Hours: My Active Orders 11/18/17 21:27 Wrist Comp Min 3V Rt [CR] Stat - Assessment/Plan Last 24 Hours: My Active Orders 11/18/17 21:27 Wrist Comp Min 3V Rt [CR] Stat
--- NOTE | 2017-11-19 08:34 | CR ---
Wrist Comp Min 3V Rt CLINICAL HISTORY: Injury FINDINGS: There is a nondisplaced longitudinal fracture through the distal radius near the radial sty loid. This extends to the articular surface. 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
== END 2017-11-18 22:19 | disposition home or self-care (01) ==
LOC: JP.ED 20:27
DX: S52.501A Unspecified fracture of the lower end of right radius, initial encounter for closed fracture (principal); K21.9 Gastro-esophageal reflux disease without esophagitis; E11.21 Type 2 diabetes mellitus with diabetic nephropathy; I12.9 Hypertensive chronic kidney disease with stage 1 through stage 4 chronic kidney disease, or unspecified chronic kidney disease; N18.3 Chronic kidney disease, stage 3 (moderate); E78.00 Pure hypercholesterolemia, unspecified; F32.9 Major depressive disorder, single episode, unspecified; Z79.82 Long term (current) use of aspirin; Z79.899 Other long term (current) drug therapy; Z88.8 Allergy status to other drugs, medicaments and biological substances; Z88.1 Allergy status to other antibiotic agents; Z87.891 Personal history of nicotine dependence; Z91.018 Allergy to other foods; Z88.2 Allergy status to sulfonamides; Z91.041 Radiographic dye allergy status; W22.8XXA Striking against or struck by other objects, initial encounter
CPT/HCPCS: 73110; 96372; 99284; J1170

== ENCOUNTER 2023-07-30 19:16 | Emergency (ER) | payer MEDICARE, BC ==
[2023-07-30 19:25] VITALS: BP 144/75; PULSE 70
== END 2023-07-30 21:26 | disposition home or self-care (01) ==
LOC: JP.ED 19:16
DX: R22.1 Localized swelling, mass and lump, neck (principal); I12.9 Hypertensive chronic kidney disease with stage 1 through stage 4 chronic kidney disease, or unspecified chronic kidney disease; N18.9 Chronic kidney disease, unspecified; J44.9 Chronic obstructive pulmonary disease, unspecified; E11.9 Type 2 diabetes mellitus without complications; Z95.5 Presence of coronary angioplasty implant and graft; Z90.49 Acquired absence of other specified parts of digestive tract; Z87.891 Personal history of nicotine dependence; Z79.82 Long term (current) use of aspirin; Z79.899 Other long term (current) drug therapy; Z88.7 Allergy status to serum and vaccine; Z88.2 Allergy status to sulfonamides; Z88.8 Allergy status to other drugs, medicaments and biological substances; Z91.048 Other nonmedicinal substance allergy status; Z91.018 Allergy to other foods
CPT/HCPCS: 71046; 71046-26; 99283